=== PATIENT | female | born 1985 ===

== ENCOUNTER 2018-11-14 16:32 | Inpatient (IN) | payer OTHER ==
[~2018-11-14] VITALS: Ht 162.6 cm; Wt 96.6 kg
[2018-11-14 17:20] LABS: BASOPHILS ABSOLUTE AUTO 0.01 K/mm3 (0.00-0.23); BASOPHILS PERCENT AUTO 0 % (0-2); EOSINOPHILS ABSOLUTE AUTO 0.09 K/mm3 (0.00-0.68); EOSINOPHILS PERCENT AUTO 1 % (0-6); Hemoglobin 12.5 g/dL (11.5-16.0); IMMATURE GRAN ABSOLUTE AUTO 0.02 K/mm3 (0.00-0.10); IMMATURE GRAN PERCENT AUTO 0 % (0-1); LYMPHOCYTES ABSOLUTE AUTO 1.65 K/mm3 (0.84-5.20); LYMPHOCYTES PERCENT AUTO 18 % (21-46); MONOCYTES ABSOLUTE AUTO 1.01 K/mm3 (0.16-1.47); MONOCYTES PERCENT AUTO 11 % (4-13); Mean Corpuscular HGB 32.9 pg (26.0-34.0); Mean Corpuscular HGB Conc 32.9 g/dL (31.5-36.5); Mean Corpuscular Volume 100 fL (80-100); Mean Platelet Volume 11.7 fL (9.1-12.4); NEUTROPHILS ABSOLUTE AUTO 6.35 K/mm3 (1.96-9.15); NEUTROPHILS PERCENT AUTO 70 % (41-73); Platelet Count 189 K/mm3 (150-400); RDW Coefficient Variation 13.7 % (11.7-14.2); RDW Standard Deviation 49.6 fL (35.1-46.3); White Blood Cell Count 9.13 K/mm3 (4.00-11.30)
--- NOTE | 2018-11-16 00:54 | NUR ---
11/16/18 0054 TobiAnca A BABY BORN AT 0043. SEGMENT OF UMBILICAL CORD GIVEN TO RT. SAMPLE OF BLOOD FROM UMBILICAL CORD GIVEN TO FBP RN.
[2018-11-16 00:55] LABS: PCO2 Cord - Arterial 66.1 mmHg (40-50); PO2 Cord - Arterial < 13 mmHg (16-20); pH Cord - Arterial 7.19 (7.28-7.35)
[2018-11-16 00:56] LABS: PO2 Cord - Venous < 13 mmHg (28-32); pH Umbilical Cord - Venous 7.22 (7.26-7.35)
[2018-11-16 09:06] LABS: Hematocrit 30.1 % (33.0-51.0); Mean Corpuscular HGB 32.1 pg (26.0-34.0); Mean Corpuscular HGB Conc 33.2 g/dL (31.5-36.5); Mean Platelet Volume 11.7 fL (9.1-12.4); Platelet Count 155 K/mm3 (150-400); RDW Coefficient Variation 13.5 % (11.7-14.2); RDW Standard Deviation 47.6 fL (35.1-46.3); Red Blood Cell Count 3.12 M/mm3 (3.80-5.20); White Blood Cell Count 16.44 K/mm3 (4.00-11.30)
[2018-11-16 09:07] LABS: Mean Corpuscular Volume 97 fL (80-100)
--- NOTE | 2018-11-16 18:36 | NUR ---
PATIENT DANGLING AND STOOD UP TO SIDE OF BED. TOLERATED WELL.
--- NOTE | 2018-11-18 13:26 | NUR ---
PT DISCHARGED HOME. DISCHARGE INSTRUCTIONS REVIEWED WITH PT AND SO, BOTH VERBALIZED UNDERSTANDING AND DENY ANY FURTHER QUESTIONS OR CONCERNS. PRESCRIPTIONS GIVEN TO PT BY Mikayla CAO. PT AMBULATORY TO CAR WITH SO.
== END 2018-11-18 13:20 | disposition home or self-care (01) | DRG 788 ==
LOC: BC 16:32
PROVIDERS: Obstetrics & Gynecology; ADMIT Nurse Practitioner Obstetrics & Gynecology
PROC: 3E0P7VZ Introduction of Hormone into Female Reproductive, Via Natural or Artificial Opening (ICD-10-PCS; 2018-11-14)
PROC: 3E0R3BZ Introduction of Anesthetic Agent into Spinal Canal, Percutaneous Approach (ICD-10-PCS; 2018-11-15)
PROC: 10907ZC Drainage of Amniotic Fluid, Therapeutic from Products of Conception, Via Natural or Artificial Opening (ICD-10-PCS; 2018-11-15)
PROC: 3E033VJ Introduction of Other Hormone into Peripheral Vein, Percutaneous Approach (ICD-10-PCS; 2018-11-15)
PROC: 10H07YZ Insertion of Other Device into Products of Conception, Via Natural or Artificial Opening (ICD-10-PCS; 2018-11-15)
PROC: 10D00Z1 Extraction of Products of Conception, Low, Open Approach (ICD-10-PCS; principal; 2018-11-16 07:00)
DX: O36.5930 Maternal care for other known or suspected poor fetal growth, third trimester, not applicable or unspecified (principal); O76 Abnormality in fetal heart rate and rhythm complicating labor and delivery; O61.0 Failed medical induction of labor; Z3A.39 39 weeks gestation of pregnancy; Z37.0 Single live birth
CPT/HCPCS: 36415; 51702; 82803; 85025; 85027; 86850; 86900; 86901; J0290; J0690; J1885; J2001; J2590; J2765; J3010; J7120

== ENCOUNTER 2021-01-25 12:30 | Inpatient (IN) | payer OTHER ==
[~2021-01-25] VITALS: Ht 162.6 cm; Wt 97.5 kg
[2021-01-25] MEDS ORDERED: FOLIVANE-OB CA1 EACH (15:35)
[2021-01-25 17:00] LABS: SARS-Cov-2 (COVID-19) PCR, MMC NEGATIVE (NEGATIVE)
--- NOTE | 2021-01-25 17:13 | NUR ---
laura landawarehouse supervisor notified of vtol
[2021-01-25 17:17] LABS: BASOPHILS ABSOLUTE AUTO 0.02 K/mm3 (0.00-0.23); BASOPHILS PERCENT AUTO 0 % (0-2); EOSINOPHILS ABSOLUTE AUTO 0.02 K/mm3 (0.00-0.68); EOSINOPHILS PERCENT AUTO 0 % (0-6); Hemoglobin 12.5 g/dL (11.5-16.0); IMMATURE GRAN ABSOLUTE AUTO 0.05 K/mm3 (0.00-0.10); IMMATURE GRAN PERCENT AUTO 0 % (0-1); LYMPHOCYTES ABSOLUTE AUTO 1.64 K/mm3 (0.84-5.20); LYMPHOCYTES PERCENT AUTO 12 % (21-46); MONOCYTES ABSOLUTE AUTO 0.99 K/mm3 (0.16-1.47); MONOCYTES PERCENT AUTO 7 % (4-13); Mean Corpuscular HGB 28.3 pg (26.0-34.0); Mean Corpuscular HGB Conc 32.9 g/dL (31.5-36.5); Mean Corpuscular Volume 86 fL (80-100); Mean Platelet Volume 11.5 fL (9.1-12.4); NEUTROPHILS ABSOLUTE AUTO 11.55 K/mm3 (1.96-9.15); NEUTROPHILS PERCENT AUTO 81 % (41-73); Platelet Count 252 K/mm3 (150-400); RDW Coefficient Variation 16.6 % (11.7-14.2); RDW Standard Deviation 50.8 fL (35.1-46.3); Red Blood Cell Count 4.42 M/mm3 (3.80-5.20); White Blood Cell Count 14.27 K/mm3 (4.00-11.30)
[2021-01-26 00:43] LABS: PCO2 Cord - Arterial 71.7 mmHg (40-50); pH Cord - Arterial 7.04 (7.28-7.35)
[2021-01-26 00:44] LABS: PO2 Cord - Arterial < 13 mmHg (16-20)
[2021-01-26 00:46] LABS: PO2 Cord - Venous < 13 mmHg (28-32); pH Umbilical Cord - Venous 7.09 (7.26-7.35)
[2021-01-26 05:40] LABS: BASOPHILS ABSOLUTE AUTO 0.03 K/mm3 (0.00-0.23); BASOPHILS PERCENT AUTO 0 % (0-2); EOSINOPHILS ABSOLUTE AUTO 0.01 K/mm3 (0.00-0.68); EOSINOPHILS PERCENT AUTO 0 % (0-6); Hematocrit 26.6 % (33.0-51.0); Hemoglobin 8.7 g/dL (11.5-16.0); IMMATURE GRAN ABSOLUTE AUTO 0.05 K/mm3 (0.00-0.10); IMMATURE GRAN PERCENT AUTO 0 % (0-1); LYMPHOCYTES ABSOLUTE AUTO 1.82 K/mm3 (0.84-5.20); LYMPHOCYTES PERCENT AUTO 11 % (21-46); MONOCYTES ABSOLUTE AUTO 1.42 K/mm3 (0.16-1.47); MONOCYTES PERCENT AUTO 9 % (4-13); Mean Corpuscular HGB 28.5 pg (26.0-34.0); Mean Corpuscular HGB Conc 32.7 g/dL (31.5-36.5); Mean Corpuscular Volume 87 fL (80-100); Mean Platelet Volume 11.7 fL (9.1-12.4); NEUTROPHILS ABSOLUTE AUTO 12.62 K/mm3 (1.96-9.15); NEUTROPHILS PERCENT AUTO 79 % (41-73); Platelet Count 190 K/mm3 (150-400); RDW Coefficient Variation 16.8 % (11.7-14.2); RDW Standard Deviation 53.1 fL (35.1-46.3); Red Blood Cell Count 3.05 M/mm3 (3.80-5.20); White Blood Cell Count 15.95 K/mm3 (4.00-11.30)
[2021-01-26 09:03] LABS: BASOPHILS ABSOLUTE AUTO 0.03 K/mm3 (0.00-0.23); BASOPHILS PERCENT AUTO 0 % (0-2); EOSINOPHILS ABSOLUTE AUTO 0.04 K/mm3 (0.00-0.68); EOSINOPHILS PERCENT AUTO 0 % (0-6); Hematocrit 27.3 % (33.0-51.0); Hemoglobin 8.9 g/dL (11.5-16.0); IMMATURE GRAN ABSOLUTE AUTO 0.05 K/mm3 (0.00-0.10); IMMATURE GRAN PERCENT AUTO 0 % (0-1); LYMPHOCYTES ABSOLUTE AUTO 1.99 K/mm3 (0.84-5.20); LYMPHOCYTES PERCENT AUTO 15 % (21-46); MONOCYTES ABSOLUTE AUTO 0.72 K/mm3 (0.16-1.47); MONOCYTES PERCENT AUTO 6 % (4-13); Mean Corpuscular HGB 28.3 pg (26.0-34.0); Mean Corpuscular HGB Conc 32.6 g/dL (31.5-36.5); Mean Corpuscular Volume 87 fL (80-100); Mean Platelet Volume 11.5 fL (9.1-12.4); NEUTROPHILS ABSOLUTE AUTO 10.32 K/mm3 (1.96-9.15); NEUTROPHILS PERCENT AUTO 79 % (41-73); Platelet Count 182 K/mm3 (150-400); RDW Standard Deviation 52.2 fL (35.1-46.3); Red Blood Cell Count 3.14 M/mm3 (3.80-5.20); White Blood Cell Count 13.15 K/mm3 (4.00-11.30)
--- NOTE | 2021-01-26 16:08 | NUR ---
01/26/21 1608 Birgit Macias VERIFICATIONS: EDIT CHART.
--- NOTE | 2021-01-27 01:47 | NUR ---
ABD DRESSING INCREASED DRAINAGE NOTED ON ABD DRESSING; NO REINFORCEMENT DRESSING REQUIRED AT THIS TIME. CHARGE NOTIFIED. EDUCATED PATIENT ON IMPORTANCE OF REST DUE TO PATIENT STATING SHE "HAS PROBABLY BEEN OVER-DOING IT TONIGHT." PT VERBALIZED UNDERSTANDING. NB TO NURSES STATION WHILE PT SLEEPS- PER PT REQUEST. WILL CONT TO MONITOR ABD INCISION/DRESSING FOR INCREASED BLEEDING.
--- NOTE | 2021-01-27 18:56 | NUR ---
Steri strips changed and jerson dressing placed per CNM. Pt reports relief after dressing placed. Denies other needs.
--- NOTE | 2021-01-28 09:15 | NUR ---
Mikayla CAO CNM AT BEDSIDE TO ASSESS MARILYN AN INCISION. MARILYN REMOVED AND SOME STERI STRIPS REMOVED IN PROCESS. CNM PLACED FEW SUTURES IN MID PART OF INCISION WHERE IT WAS GAPING. ABD AND PRESSURE DRESSING PLACED, TO BE LEFT ON UNTIL 1 WEEK FOLLOW UP APPOINTMENT.
[2021-01-28] MEDS ORDERED: Percocet 5-3251 EACH PO (09:41)
[2021-01-28] MEDS ORDERED: IBU800 M1 PO (09:42)
--- NOTE | 2021-01-28 10:40 | NUR ---
No acute changes t/o shift. ID bands matched w/nb. Pt denies additional questions/concerns. pt d/c'd home ambulatory to care of .
== END 2021-01-28 10:40 | disposition home or self-care (01) | DRG 784 ==
LOC: BC 12:30 → OBS 12:30 → BC 16:54
PROVIDERS: Obstetrics & Gynecology; ADMIT Advanced Practice Midwife
PROC: 3E02340 Introduction of Influenza Vaccine into Muscle, Percutaneous Approach (ICD-10-PCS; 2021-01-25)
PROC: 10D00Z1 Extraction of Products of Conception, Low, Open Approach (ICD-10-PCS; principal; 2021-01-25 23:15)
PROC: 0UT70ZZ Resection of Bilateral Fallopian Tubes, Open Approach (ICD-10-PCS; 2021-01-25 23:15)
DX: O34.211 Maternal care for low transverse scar from previous cesarean delivery (principal); O98.52 Other viral diseases complicating childbirth; Z3A.40 40 weeks gestation of pregnancy; Z37.0 Single live birth; Z91.018 Allergy to other foods; Z98.51 Tubal ligation status; O99.02 Anemia complicating childbirth; D64.9 Anemia, unspecified; O99.334 Smoking (tobacco) complicating childbirth; F17.210 Nicotine dependence, cigarettes, uncomplicated; B00.9 Herpesviral infection, unspecified; O76 Abnormality in fetal heart rate and rhythm complicating labor and delivery; N83.8 Other noninflammatory disorders of ovary, fallopian tube and broad ligament; O75.89 Other specified complications of labor and delivery; Z23 Encounter for immunization
CPT/HCPCS: 36415; 51702; 59025; 82803; 85025; 86850; 86900; 86901; 88302; A9270; J0690; J1885; J2001; J2250; J2405; J2590; J2765; J3010; J7120; U0004